=== PATIENT | male | born 1965 | race Caucasian/White ===

== ENCOUNTER 2022-02-26 04:14 | Emergency (ER) | payer MEDICAID ==
[~2022-02-26] VITALS: Ht 170.2 cm; Wt 79.4 kg
[2022-02-26 04:14] VITALS: BP 129/76
--- NOTE | 2022-02-26 04:37 | NUR ---
xray at bedside
[2022-02-26] MEDS ORDERED: IBUPROFEN 400 MG TABLET ONE (04:38)
[2022-02-26] MEDS ORDERED: IBUPROFEN 400 MG TABLET PO ONE (05:00)
== END 2022-02-26 05:26 | disposition home or self-care (01) ==
LOC: ER 04:20
DX: S70.12XA Contusion of left thigh, initial encounter (principal); W22.8XXA Striking against or struck by other objects, initial encounter; Y93.89 Activity, other specified; Y92.89 Other specified places as the place of occurrence of the external cause; Y99.8 Other external cause status
CPT/HCPCS: 73552

== ENCOUNTER 2024-07-03 01:14 | Emergency (ER) | payer MEDICAID, OTHER ==
[~2024-07-03] VITALS: Ht 172.7 cm; Wt 77.1 kg
[2024-07-03] MEDS ORDERED: TETRAcaine 5 ML BOTTLE ONE (01:22)
[2024-07-03] MEDS ORDERED: FLUORESCEIN SODIUM OPHTH 1 EA STRIP ONE (01:22)
[2024-07-03] MEDS: FLUORESCEIN SODIUM OPHTH 1 EA STRIP OP ONE (01:38)
[2024-07-03] MEDS: TETRACAINE HCL 0.5% OPHTALMIC 15 ML BOTTLE OP ONE (01:38)
[2024-07-03 04:12] VITALS: BP 154/93; TEMP 98.7; O2SAT 99
== END 2024-07-03 04:13 | disposition home or self-care (01) ==
LOC: ER 01:16
DX: S05.02XA Injury of conjunctiva and corneal abrasion without foreign body, left eye, initial encounter (principal); W45.8XXA Other foreign body or object entering through skin, initial encounter; Y93.89 Activity, other specified; Y92.89 Other specified places as the place of occurrence of the external cause; Y99.8 Other external cause status

== ENCOUNTER 2024-08-28 18:47 | Emergency (ER) | payer MEDICAID, OTHER ==
[~2024-08-28] VITALS: Ht 172.7 cm; Wt 77.1 kg
[2024-08-28] MEDS ORDERED: CYCLOBENZAPRINE 10 MG TABLET ONE (22:25)
[2024-08-28] MEDS ORDERED: IBUPROFEN 400 MG TABLET ONE (22:25)
[2024-08-28] MEDS: IBUPROFEN 400 MG TABLET PO ONE (22:28)
[2024-08-28] MEDS: CYCLOBENZAPRINE 10 MG TABLET PO ONE (22:28)
[2024-08-29] MEDS ORDERED: CYCL5TAB PO (00:09)
[2024-08-29 00:36] VITALS: BP 124/80; TEMP 97.8; O2SAT 100
== END 2024-08-29 00:36 | disposition home or self-care (01) ==
LOC: ER 18:51
DX: M25.512 Pain in left shoulder (principal)
CPT/HCPCS: 73030-TC